=== PATIENT | male | born 1935 | race Caucasian/White ===

== ENCOUNTER 2019-04-18 13:05 | Emergency (ER) | payer MEDICARE ==
[~2019-04-18] VITALS: Ht 180.3 cm; Wt 91.0 kg
[2019-04-18] MEDS ORDERED: KETOROLAC 60MG/2ML VIAL IM ONE (15:15)
[2019-04-18 17:15] VITALS: BP 129/65
== END 2019-04-18 17:15 | disposition home or self-care (01) ==
LOC: ER 13:05
DX: M25.462 Effusion, left knee (principal); Z87.891 Personal history of nicotine dependence; J44.9 Chronic obstructive pulmonary disease, unspecified
CPT/HCPCS: 93971; 96372; 99284; J1885